=== PATIENT | male | born 1950 | race Caucasian/White ===

== ENCOUNTER → 2017-10-20 15:23 | Outpatient (CLI) | payer MEDICARE, OTHER, SELFPAY ==
[2017-10-20 16:10] LABS: PSA,Total- Diagnostic < 0.01 ng/mL (0.0-4.0)
== END ==
PROVIDERS: Visit Provider Urology
DX: C61 Malignant neoplasm of prostate (principal)
CPT/HCPCS: 36415; 84153

== ENCOUNTER → 2018-04-13 15:18 | Outpatient (CLI) | payer MEDICARE, OTHER, SELFPAY ==
[2018-04-13 16:46] LABS: PSA,Total- Diagnostic 0.01 ng/mL (0.0-4.0)
== END ==
PROVIDERS: Referring Provider Urology; Visit Provider Urology
DX: C61 Malignant neoplasm of prostate (principal)
CPT/HCPCS: 36415; 84153

== ENCOUNTER → 2018-10-27 15:21 | Outpatient (CLI) | payer MEDICARE, OTHER, SELFPAY ==
[2018-10-27 17:07] LABS: PSA,Total- Diagnostic < 0.01 ng/mL (0.0-4.0)
== END ==
PROVIDERS: Referring Provider Urology; Visit Provider Urology
DX: C61 Malignant neoplasm of prostate (principal)
CPT/HCPCS: 36415; 84153

== ENCOUNTER → 2018-11-06 15:25 | Outpatient (CLI) | payer MEDICARE, OTHER, SELFPAY | PROVIDERS: Referring Provider Psychiatry & Neurology Neurology; Visit Provider Psychiatry & Neurology Neurology | DX: E03.9 Hypothyroidism, unspecified (principal) | CPT/HCPCS: 36415 ==

== ENCOUNTER → 2019-05-04 15:26 | Outpatient (CLI) | payer MEDICARE, OTHER, SELFPAY ==
[2019-05-04 17:19] LABS: PSA,Total- Diagnostic 0.02 ng/mL (0.0-4.0)
== END ==
PROVIDERS: Referring Provider Urology; Visit Provider Urology
DX: C61 Malignant neoplasm of prostate (principal)
CPT/HCPCS: 36415; 84153

== ENCOUNTER → 2019-11-02 15:05 | Outpatient (CLI) | payer MEDICARE, OTHER, SELFPAY ==
[2019-11-02 16:59] LABS: PSA,Total- Diagnostic 0.02 ng/mL (0.0-4.0)
== END ==
PROVIDERS: Visit Provider Urology
DX: C61 Malignant neoplasm of prostate (principal)
CPT/HCPCS: 36415; 84153

== ENCOUNTER → 2019-11-05 12:38 | Outpatient (CLI) | payer MEDICARE, OTHER, SELFPAY ==
[2019-11-05 15:06] LABS: Erythrocyte Sedimentation Rate 10 mm/hr (0-20)
[2019-11-05 15:31] LABS: Hemoglobin A1c 5.3 % (3.8-5.6)
[2019-11-05 15:47] LABS: Rheumatoid Factor < 10.0 IU/mL (<15)
[2019-11-05 16:01] LABS: Vitamin B12 322 pg/mL (211-911)
[2019-11-05 23:22] LABS: Thyroid Stim Hormone (TSH) 4.59 uIU/mL (0.358-3.74)
[2019-11-08 16:07] LABS: RNP Ab 0.2 AI (0.0-0.9); Smith Ab <0.2 AI (0.0-0.9)
[2019-11-08 16:31] LABS: ANTINUCLEAR ANTIBODIES DIRECT Negative (Negative)
[2019-11-09 20:07] LABS: HCV Quant. RNA PCR HCV Not Detected IU/mL (.); PROEL- A/G Ratio 1.1 (0.7-1.7); PROEL- Albumin 3.4 g/dL (2.9-4.4); PROEL- Alpha-1 Globulin 0.2 g/dL (0.0-0.4); PROEL- Alpha-2 Globulin 0.6 g/dL (0.4-1.0); PROEL- Beta Globulin 0.9 g/dL (0.7-1.3); PROEL- Gamma Globulin 1.2 g/dL (0.4-1.8); PROEL- TOTAL PROTEIN 6.4 g/dL (6.0-8.5)
== END ==
PROVIDERS: Referring Provider Psychiatry & Neurology Neurology; Visit Provider Psychiatry & Neurology Neurology
DX: R20.1 Hypoesthesia of skin (principal); R53.83 Other fatigue; R73.9 Hyperglycemia, unspecified
CPT/HCPCS: 36415; 82607; 82746; 83036; 84165; 84443; 85652; 86038; 86235; 86431; 87522

== ENCOUNTER → 2020-06-29 14:01 | Outpatient (CLI) | payer MEDICARE, OTHER, SELFPAY ==
[2020-06-29 15:36] LABS: PSA,Total- Diagnostic 0.06 ng/mL (0.0-4.0)
== END ==
PROVIDERS: Referring Provider Urology; Visit Provider Urology
DX: C61 Malignant neoplasm of prostate (principal)
CPT/HCPCS: 36415; 84153

== ENCOUNTER → 2021-01-05 15:21 | Outpatient (CLI) | payer MEDICARE, OTHER, SELFPAY ==
--- NOTE | 2021-01-05 15:23 | RAD_ITS ---
STUDY: X-RAY CHEST REASON FOR EXAM: Male, 70 years old. DYSPNEA TECHNIQUE: PA and lateral views of the chest. COMPARISON: None. FINDINGS: There are interstitial fibrotic changes of the lungs. Lungs are underexpanded. No airspace consolidation. There is no demonstrated pleural abnormality. Normal size heart. Normal mediastinum and stevie. Normal visualized pulmonary arteries. There is atherosclerotic tortuosity of the aortic arch and descending thoracic aorta. There are diffuse degenerative changes of the visualized thoracic spine. Normal visualized ribs, clavicles, and shoulders. There is no demonstrated abnormality of the visualized soft tissue structures of the upper abdomen. RAD/Chest PA and Lateral IMPRESSION: 1. No acute cardiopulmonary process. 2. Pulmonary fibrosis. Electronically Signed: Eduardo Nino MD ([place]) at 16:05 EDT , Service support ,
== END ==
PROVIDERS: Referring Provider Internal Medicine Pulmonary Disease; Visit Provider Internal Medicine Pulmonary Disease
DX: R06.00 Dyspnea, unspecified (principal)
CPT/HCPCS: 71046

== ENCOUNTER → 2021-02-13 12:33 | Outpatient (CLI) | payer MEDICARE, OTHER, SELFPAY ==
[2021-02-13 13:56] LABS: Erythrocyte Sedimentation Rate 11 mm/hr (0-20)
[2021-02-13 14:31] LABS: Rheumatoid Factor < 10.0 IU/mL (<15)
[2021-02-15 14:10] LABS: Anti-Scleroderma-70 AB <0.2 AI (0.0-0.9)
[2021-02-15 17:55] LABS: ANTINUCLEAR ANTIBODIES DIRECT Negative (Negative); Anti-dsDNA Ab <1 IU/mL (0-9)
[2021-02-16 07:45] LABS: CCP IgG Antibodies 6 units (0-19)
== END ==
PROVIDERS: Referring Provider Internal Medicine Pulmonary Disease; Visit Provider Internal Medicine Pulmonary Disease
DX: R05 Cough (principal); Z77.090 Contact with and (suspected) exposure to asbestos
CPT/HCPCS: 36415; 85652; 86038; 86140; 86200; 86225; 86235; 86431

== ENCOUNTER → 2021-02-19 13:41 | Outpatient (CLI) | payer MEDICARE, OTHER, SELFPAY ==
--- NOTE | 2021-02-19 13:44 | CT_ITS ---
STUDY: CT CHEST WITHOUT CONTRAST REASON FOR EXAM: Male, 70 years old. CONTACT WITH SUSPECTED asbestos exposure. RADIATION DOSAGE (If Supplied By Facility): CTDIvol = ( 15.42 ) mGy, DLP = ( 522.15 ) mGycm TECHNIQUE: Transaxial imaging was performed without the administration of intravenous contrast material. Multiplanar coronal and sagittal images were reformatted. Individualized dose optimization techniques were used for this CT. COMPARISON: Comparison is made with prior study dated 12/24/2016. FINDINGS: Increased interstitial markings in both lungs more prominent in the lower lobes in a preferential peripheral distribution with a mild degree of subpleural cystic changes suggestive of a honeycombing. Calcified bilateral pleural plaques more prominent on the right side. There are calcifications of the coronary arteries. There are multiple small lymph nodes within the mediastinum, which are normal in size and morphology most compatible with reactive lymph hyperplasia. Normal hilar regions. Normal unenhanced pulmonary arteries. Normal aorta arch and descending thoracic aorta. There are multi-level degenerative changes of the thoracic spine. There is no demonstrated abnormality of the visualized upper abdomen. CT/Chest without Contrast IMPRESSION: Calcified pleural plaques. Findings in comparison with interstitial fibrosis and subpleural bleb formation. Electronically Signed: Mahamed Pablo MD at 15:17 EDT , Service support ,
== END ==
PROVIDERS: Referring Provider Internal Medicine Pulmonary Disease; Visit Provider Internal Medicine Pulmonary Disease
DX: Z77.090 Contact with and (suspected) exposure to asbestos (principal); R05 Cough
CPT/HCPCS: 71250

== ENCOUNTER → 2021-03-02 14:03 | Outpatient (CLI) | payer MEDICARE, OTHER, SELFPAY ==
[2021-03-02 15:33] LABS: AST(SGOT) 16 U/L (15-37); Alanine Aminotransfer ALT/SGPT 28 U/L (16-61); Albumin, Serum 3.1 g/dL (3.2-5.0); Alkaline Phosphatase 83 U/L (45-117); Bilirubin, Direct 0.24 mg/dL (0.00-0.30); Globulin 3.8 g/dL (2.2-4.2); Protein, Total 6.9 g/dL (6.4-8.2)
== END ==
PROVIDERS: Referring Provider Internal Medicine Pulmonary Disease; Visit Provider Internal Medicine Pulmonary Disease
DX: J84.10 Pulmonary fibrosis, unspecified (principal); Z79.899 Other long term (current) drug therapy
CPT/HCPCS: 36415; 80076

== ENCOUNTER 2021-05-31 14:32 | Outpatient (RCR) | payer MEDICARE, OTHER, SELFPAY ==
[2021-05-31 15:37] LABS: AST(SGOT) 21 U/L (15-37); Alanine Aminotransfer ALT/SGPT 39 U/L (16-61); Albumin, Serum 3.4 g/dL (3.2-5.0); Alkaline Phosphatase 98 U/L (45-117); Bilirubin, Direct 0.16 mg/dL (0.00-0.30); Globulin 3.8 g/dL (2.2-4.2); Protein, Total 7.2 g/dL (6.4-8.2)
== END 2021-06-09 18:00 | disposition home or self-care (01) ==
LOC: LAB 14:32
PROVIDERS: Visit Provider Internal Medicine Pulmonary Disease
DX: J84.10 Pulmonary fibrosis, unspecified (principal); Z79.899 Other long term (current) drug therapy
CPT/HCPCS: 36415; 80076

== ENCOUNTER 2021-07-04 10:34 | Outpatient (CLI) | payer MEDICARE, OTHER, SELFPAY ==
[2021-07-04 11:23] LABS: PSA,Total- Diagnostic 0.08 ng/mL (0.0-4.0)
== END 2021-07-04 23:59 | disposition short-term general hospital (02) ==
LOC: LAB 10:36
PROVIDERS: Visit Provider Urology
DX: C61 Malignant neoplasm of prostate (principal)
CPT/HCPCS: 36415; 84153

== ENCOUNTER 2021-08-16 08:02 | Outpatient (RCR) | payer MEDICARE, OTHER, SELFPAY ==
[2021-08-16 09:28] LABS: AST(SGOT) 15 U/L (15-37); Alanine Aminotransfer ALT/SGPT 31 U/L (16-61); Albumin, Serum 3.5 g/dL (3.2-5.0); Alkaline Phosphatase 97 U/L (45-117); Bilirubin, Direct 0.18 mg/dL (0.00-0.30); Globulin 3.9 g/dL (2.2-4.2); Protein, Total 7.4 g/dL (6.4-8.2)
== END 2021-09-06 18:00 | disposition home or self-care (01) ==
LOC: LAB 08:02
PROVIDERS: Referring Provider Internal Medicine Pulmonary Disease; Visit Provider Internal Medicine Pulmonary Disease
DX: Z79.899 Other long term (current) drug therapy (principal); J84.10 Pulmonary fibrosis, unspecified
CPT/HCPCS: 36415; 80076

== ENCOUNTER 2021-11-30 10:18 | Outpatient (RCR) | payer MEDICARE, OTHER, SELFPAY ==
[2021-11-30 11:39] LABS: AST(SGOT) 14 U/L (15-37); Alanine Aminotransfer ALT/SGPT 24 U/L (16-61); Albumin, Serum 3.4 g/dL (3.2-5.0); Alkaline Phosphatase 89 U/L (45-117); Bilirubin, Direct 0.18 mg/dL (0.00-0.30); Globulin 3.5 g/dL (2.2-4.2); Protein, Total 6.9 g/dL (6.4-8.2)
== END 2021-11-30 23:59 | disposition home or self-care (01) ==
LOC: LAB 10:18
PROVIDERS: Referring Provider Internal Medicine Pulmonary Disease; Visit Provider Internal Medicine Pulmonary Disease
DX: J84.10 Pulmonary fibrosis, unspecified (principal); Z79.899 Other long term (current) drug therapy
CPT/HCPCS: 36415; 80076

== ENCOUNTER 2022-03-04 13:12 | Outpatient (RCR) | payer MEDICARE, OTHER, SELFPAY ==
[2022-03-04 14:08] LABS: AST(SGOT) 13 U/L (15-37); Alanine Aminotransfer ALT/SGPT 27 U/L (16-61); Albumin, Serum 3.4 g/dL (3.2-5.0); Alkaline Phosphatase 83 U/L (45-117); Bilirubin, Direct 0.14 mg/dL (0.00-0.30); Globulin 3.7 g/dL (2.2-4.2); Protein, Total 7.1 g/dL (6.4-8.2)
== END 2022-03-04 18:00 | disposition home or self-care (01) ==
LOC: LAB 13:12
PROVIDERS: Referring Provider Internal Medicine Pulmonary Disease; Visit Provider Internal Medicine Pulmonary Disease
DX: J84.10 Pulmonary fibrosis, unspecified (principal); Z79.899 Other long term (current) drug therapy
CPT/HCPCS: 36415; 80076

== ENCOUNTER → 2022-03-04 | Outpatient (CLI) | payer MEDICARE, OTHER, SELFPAY ==
--- NOTE | 2022-03-04 12:51 | CT_ITS ---
EXAM: CT CHEST WITHOUT INTRAVENOUS CONTRAST CLINICAL INDICATION: PULM FIBROSIS PULM FIBROSIS TECHNIQUE: Helically acquired images were obtained of the chest without intravenous contrast. This CT exam was performed using one or more of the following dose reduction techniques: automated exposure control, adjustment of the mA and/or kV according to patient size, and/or use of iterative reconstruction technique. This report was created using [employer] report generation technology. RADIATION DOSE: CTDIvol = 15.43 mGy, DLP = 493.62 mGy-cm COMPARISON: CT scan chest 02/19/2021. FINDINGS: LUNGS AND PLEURAL SPACES: There are fibrotic changes in the lungs which are greatest in the lung peripheries. There are multiple small paraseptal emphysematous bullae bilaterally. There is some honeycombing bilaterally, consistent with usual interstitial pneumonitis. There are calcified pleural plaques bilaterally including plaques overlie the dome of the right hemidiaphragm, suspicious for asbestosis. There is mild bronchiectasis bilaterally. No mass. HEART: There are coronary artery calcifications. Heart size is normal. No pericardial effusion. MEDIASTINUM: Unremarkable. No mediastinal or hilar adenopathy. Esophagus is unremarkable. No hiatal hernia. THYROID: Unremarkable. No thyroid lesions. BONES/JOINTS: There are multilevel degenerative changes in the visualized spine. No suspicious lytic or blastic abnormality. VASCULATURE: Unremarkable. Thoracic aorta is non-dilated. KIDNEYS AND URETERS: There is a simple appearing cyst in the visualized upper pole left kidney. No follow-up imaging is necessary for simple renal cysts or cysts that are too small to characterize. CT/Chest without Contrast IMPRESSION: 1. Fibrotic and emphysematous changes in the lungs. Mild bronchiectasis. 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 2. Calcified pleural plaques, suggesting asbestosis. 3. Atherosclerosis. 4. No evidence for acute pathology. Electronically Signed: Abdon Mcqueen MD at 4:32 EDT Reading Location ID and State: [facility] / [place] , Service support ,
== END | disposition home or self-care (01) ==
LOC: CT 12:49
PROVIDERS: Referring Provider Internal Medicine Pulmonary Disease; Visit Provider Internal Medicine Pulmonary Disease
DX: J84.10 Pulmonary fibrosis, unspecified (principal); J84.112 Idiopathic pulmonary fibrosis; Z79.899 Other long term (current) drug therapy
CPT/HCPCS: 36415; 71250; 80076

== ENCOUNTER → 2022-04-11 | Outpatient (CLI) | payer MEDICARE, OTHER, SELFPAY ==
--- NOTE | 2022-04-11 13:44 | ECHOCS_ITS ---
Reason For Study: Hypoxemia Procedure This was a 2D Doppler, Color Flow transthoracic echocardiogram. Contrast injection was performed. The study was technically difficult. Exam performed in department. Left Ventricle Normal size and thickness. The left ventricular ejection fraction is 65 %. Diastolic function is indeterminate. Right Ventricle Normal right ventricle. Atria The left atrium is severely enlarged. The right atrium is mildly enlarged. Aneurysmal atrial septum. Bubble contrast study negative for right to left interatrial shunt. Mitral Valve Trivial mitral valve insufficiency. Tricuspid Valve Mild tricuspid valve insufficiency. Right ventricular systolic pressure estimated to be 42 mmHg. Mild pulmonary hypertension. Aortic Valve Normal aortic valve. Pulmonic Valve The pulmonic valve is not well visualized. Great Vessels Mildly dilated aortic root. Pericardium/Pleural No pericardial effusion. Medication 20 gauge I.V. with prn adaptor inserted into right arm. Diluted definity 2.5ml given slow IV push to enhance endocardial definition. Performed a rapid injection of agitated mix of 9 cc saline and 1cc air to assess for atrial septal defect. MMode/2D Measurements & Calculations LVIDd: 4.8 cm IVSd: 0.94 cm Ao root diam: 3.8 cm LVIDs: 3.0 cm LVPWd: 0.75 cm LA dimension: 4.3 cm FS: 37.7 % LAV(MOD-bp): 68.6 ml LA A4 area: 23.6 cm2 RA A4 area: 15.6 cm2 LAV(MOD-bp) Indexed: 35.0 ml/m2 LAV(MOD-sp2): 68.3 ml LAV(MOD-sp4): 62.3 ml Time Measurements MV dec time: 0.18 sec Doppler Measurements & Calculations MV E max eliel: 63.8 cm/sec Lat Peak E' Eliel: 12.8 cm/sec Med Peak E' Eliel: 8.5 cm/sec MV A max eliel: 80.6 cm/sec E/E' lat: 5.0 E/E' med: 7.5 MV E/A: 0.79 MV V2 max: 81.6 cm/sec MV P1/2t max eliel: 81.6 cm/sec Ao V2 max: 117.1 cm/sec MV max P.7 mmHg MV P1/2t: 64.1 msec Ao max P.5 mmHg MV V2 mean: 51.4 cm/sec MV dec slope: 372.9 cm/sec2 MV mean P.2 mmHg MV V2 VTI: 21.0 cm MVA(P1/2t): 3.4 cm2 LV V1 max: 115.3 cm/sec PA V2 max: 170.8 cm/sec TR max eliel: 286.2 cm/sec LV V1 max P.3 mmHg PA V2 mean: 120.8 cm/sec TR max P.8 mmHg ECHO/Echo Complete W/ Contrast Interpretation Summary The left ventricular ejection fraction is 65 %. Diastolic function is indeterminate. The left atrium is severely enlarged. Aneurysmal atrial septum. Bubble contrast study negative for right to left inte ratrial shunt. Mild tricuspid valve insufficiency. Right ventricular systolic pressure estimated to be 42 mmHg. Mild pulmonary hypertension. Mildly dilated aortic root. Ordering Physician: Nicholas Mondragon V Referring Physician: Nicholas Mondragon V Performed By: Mu Gerard, ELENA
== END | disposition home or self-care (01) ==
LOC: CVS 13:42
PROVIDERS: Referring Provider Internal Medicine Pulmonary Disease; Visit Provider Internal Medicine Pulmonary Disease
DX: R06.00 Dyspnea, unspecified (principal)
CPT/HCPCS: 93306; Q9957; A4216; C8929

== ENCOUNTER 2022-05-29 09:58 | Outpatient (RCR) | payer MEDICARE, OTHER, SELFPAY ==
[2022-05-29 11:35] LABS: AST(SGOT) 12 U/L (15-37); Alanine Aminotransfer ALT/SGPT 38 U/L (16-61); Alkaline Phosphatase 95 U/L (45-117); Bilirubin, Direct 0.15 mg/dL (0.00-0.30); Globulin 3.5 g/dL (2.2-4.2); Protein, Total 6.5 g/dL (6.4-8.2)
== END 2022-05-29 18:00 | disposition home or self-care (01) ==
LOC: LAB 09:58
PROVIDERS: Referring Provider Internal Medicine Pulmonary Disease; Visit Provider Internal Medicine Pulmonary Disease
DX: J84.10 Pulmonary fibrosis, unspecified (principal); Z79.899 Other long term (current) drug therapy
CPT/HCPCS: 36415; 80076

== ENCOUNTER → 2022-06-14 | Outpatient (CLI) | payer MEDICARE, OTHER, SELFPAY ==
[2022-06-14 14:51] LABS: BNP,B-Type NATRIURETIC PEPTIDE 13.9 pg/mL (0-100)
== END | disposition home or self-care (01) ==
LOC: LAB 13:38
PROVIDERS: Referring Provider Internal Medicine Pulmonary Disease; Visit Provider Internal Medicine Pulmonary Disease
DX: R06.00 Dyspnea, unspecified (principal)
CPT/HCPCS: 36415; 83880

== ENCOUNTER 2022-09-03 12:46 | Outpatient (RCR) | payer MEDICARE, OTHER, SELFPAY ==
[2022-09-03 14:27] LABS: AST(SGOT) 18 U/L (15-37); Alanine Aminotransfer ALT/SGPT 23 U/L (16-61); Albumin, Serum 3.2 g/dL (3.2-5.0); Alkaline Phosphatase 84 U/L (45-117); Bilirubin, Direct 0.14 mg/dL (0.00-0.30); Globulin 3.5 g/dL (2.2-4.2); Protein, Total 6.7 g/dL (6.4-8.2)
== END 2022-09-06 23:00 | disposition home or self-care (01) ==
LOC: LAB 12:46
PROVIDERS: Referring Provider Internal Medicine Pulmonary Disease; Visit Provider Internal Medicine Pulmonary Disease
DX: J84.10 Pulmonary fibrosis, unspecified (principal); Z79.899 Other long term (current) drug therapy
CPT/HCPCS: 36415; 80076

== ENCOUNTER 2022-11-20 09:10 | Outpatient (RCR) | payer MEDICARE, OTHER, SELFPAY ==
[2022-11-20 12:01] LABS: AST(SGOT) 17 U/L (15-37); Alanine Aminotransfer ALT/SGPT 27 U/L (16-61); Albumin, Serum 3.4 g/dL (3.2-5.0); Alkaline Phosphatase 93 U/L (45-117); Globulin 3.9 g/dL (2.2-4.2); Protein, Total 7.3 g/dL (6.4-8.2)
== END 2022-11-20 18:00 | disposition home or self-care (01) ==
LOC: LAB 09:10
PROVIDERS: Referring Provider Internal Medicine Pulmonary Disease; Visit Provider Internal Medicine Pulmonary Disease
DX: Z79.899 Other long term (current) drug therapy
CPT/HCPCS: 36415; 80076

== ENCOUNTER 2023-03-03 08:56 | Outpatient (RCR) | payer MEDICARE, OTHER, SELFPAY ==
[2023-03-03 09:49] LABS: AST(SGOT) 14 U/L (15-37); Alanine Aminotransfer ALT/SGPT 28 U/L (16-61); Albumin, Serum 3.1 g/dL (3.2-5.0); Alkaline Phosphatase 90 U/L (45-117); Bilirubin, Direct 0.14 mg/dL (0.00-0.30); Globulin 3.6 g/dL (2.2-4.2); Protein, Total 6.7 g/dL (6.4-8.2)
== END 2023-03-03 18:00 | disposition home or self-care (01) ==
LOC: LAB 08:56
PROVIDERS: Referring Provider Internal Medicine Pulmonary Disease; Visit Provider Internal Medicine Pulmonary Disease
DX: Z79.899 Other long term (current) drug therapy; R06.02 Shortness of breath; I27.20 Pulmonary hypertension, unspecified
CPT/HCPCS: 36415; 80076

== ENCOUNTER → 2023-05-22 | Outpatient (CLI) | payer MEDICARE, OTHER, SELFPAY ==
[2023-05-22 13:22] LABS: AST(SGOT) 20 U/L (15-37); Alanine Aminotransfer ALT/SGPT 35 U/L (16-61); Albumin, Serum 3.2 g/dL (3.2-5.0); Alkaline Phosphatase 95 U/L (45-117); Bilirubin, Direct 0.13 mg/dL (0.00-0.30); Globulin 3.9 g/dL (2.2-4.2); Protein, Total 7.1 g/dL (6.4-8.2)
== END | disposition home or self-care (01) ==
PROVIDERS: Referring Provider Internal Medicine Pulmonary Disease; Visit Provider Internal Medicine Pulmonary Disease
DX: I27.20 Pulmonary hypertension, unspecified (principal); R06.02 Shortness of breath
CPT/HCPCS: 36415; 80076

== ENCOUNTER 2023-09-01 11:02 | Outpatient (RCR) | payer MEDICARE, OTHER, SELFPAY ==
[2023-09-01 13:17] LABS: AST(SGOT) 16 U/L (15-37); Alanine Aminotransfer ALT/SGPT 30 U/L (16-61); Albumin, Serum 3.5 g/dL (3.2-5.0); Alkaline Phosphatase 81 U/L (45-117); Bilirubin, Direct 0.19 mg/dL (0.00-0.30); Globulin 3.8 g/dL (2.2-4.2); Protein, Total 7.3 g/dL (6.4-8.2)
== END 2023-09-06 18:00 | disposition home or self-care (01) ==
LOC: LAB 11:02
PROVIDERS: Referring Provider Internal Medicine Pulmonary Disease; Visit Provider Internal Medicine Pulmonary Disease
DX: J84.10 Pulmonary fibrosis, unspecified (principal); Z79.899 Other long term (current) drug therapy
CPT/HCPCS: 36415; 80076

== ENCOUNTER → 2023-11-07 | Outpatient (CLI) | payer MEDICARE, OTHER, SELFPAY ==
--- NOTE | 2023-11-07 07:41 | CT_ITS ---
EXAM: CT RIGHT UPPER EXTREMITY WITHOUT INTRAVENOUS CONTRAST CLINICAL INDICATION: PRIMARY OSTEOARTHRITIS TECHNIQUE: Helically acquired images were obtained of the right upper extremity without intravenous contrast. 2-D reformats were performed by the technologist. This CT exam was performed using one or more of the following dose reduction techniques: automated exposure control, adjustment of the mA and/or kV according to patient size, and/or use of iterative reconstruction technique. RADIATION DOSE: CTDIvol = 26.58 mGy, DLP = 723.93 mGy-cm COMPARISON: No prior examinations are available for comparison. FINDINGS: BONES/JOINTS: Narrowing of the glenohumeral joint. Marginal degenerative spurs of the medial aspect of the humeral head. Cephalad migration of the humeral head with narrowing of the space between the acromion process and the humeral head which can impinge on the supraspinatus tendon. The acromioclavicular joint is essentially unremarkable. No acute fracture. No subluxation. Normal alignment. SOFT TISSUES: Unremarkable. No soft tissue swelling or gas. No radiopaque foreign body. LUNGS: The visualized portions of the lungs demonstrate subpleural thickening and mild cystic changes which could reflect chronic changes and fibrosis. Pleural calcifications in the medial aspect of the right lower chest and subdiaphragmatic region. CT/Extremity Upper without Contra IMPRESSION: Degenerative arthrosis of the right shoulder as described above. Electronically Signed: Cody Cabezas MD at 13:30 EDT ,
== END | disposition home or self-care (01) ==
LOC: CT 07:40
PROVIDERS: Referring Provider Student in an Organized Health Care Education/Training Program; Visit Provider Student in an Organized Health Care Education/Training Program
DX: M19.011 Primary osteoarthritis, right shoulder (principal)
CPT/HCPCS: 73200

== ENCOUNTER 2023-11-17 11:14 | Outpatient (RCR) | payer MEDICARE, OTHER, SELFPAY ==
[2023-11-17 13:10] LABS: AST(SGOT) 23 U/L (15-37); Alanine Aminotransfer ALT/SGPT 40 U/L (16-61); Albumin, Serum 3.3 g/dL (3.2-5.0); Alkaline Phosphatase 102 U/L (45-117); Bilirubin, Direct 0.28 mg/dL (0.00-0.30); Globulin 3.6 g/dL (2.2-4.2); Protein, Total 6.9 g/dL (6.4-8.2)
== END 2023-11-17 18:00 | disposition home or self-care (01) ==
LOC: LAB 11:14
PROVIDERS: Referring Provider Internal Medicine Pulmonary Disease; Visit Provider Internal Medicine Pulmonary Disease
DX: I27.20 Pulmonary hypertension, unspecified; R06.02 Shortness of breath
CPT/HCPCS: 36415; 80076

== ENCOUNTER 2023-12-04 12:08 | Observation (INO) | payer MEDICARE, OTHER, SELFPAY ==
[2023-11-17 12:31] LABS: Absolute Lymphocyte Count 1.01 X10^3/uL (0.83-4.51); Absolute Neutrophil Count 3.9 X10^3/uL (2.0-7.7); Basophil# 0.03 X10^3/uL; Basophil% 0.5 % (0-1); Eosinophil# 0.21 X10^3/uL; Eosinophils% 3.5 % (0-5); Hematocrit 38.9 % (40-54); Hemoglobin 12.9 g/dL (13.0-16.5); Lymphocyte # 1.01 X10^3/ul (0.83-4.51); Lymphocyte % 16.9 % (19-41); Mean Corp Hgb Conc 33.2 g/dL (32-36); Mean Corpuscular Hgb 32.5 pg (27.0-32.0); Mean Platelet Vol. 9.7 fl (6.2-12.0); Monocyte# 0.68 X10^3/uL; Monocyte% 11.4 % (0-10); NRBC Flagged by Analyzer 0 % (0-5); Neutrophil # 3.93 X10^3/uL (2.7-7.7); Neutrophil % 65.9 % (47-70); Platelet Count 157 K/mm3 (150-450); RBC Distribution Width CV 13.3 % (11.6-14.6); RBC Distribution Width SD 48.3 fl (35.1-43.9); Red Blood Count 3.97 M/mm3 (4.6-6.2)
[2023-11-17 12:51] LABS: Hemoglobin A1c 5.2 % (3.8-5.6)
[2023-11-17 12:58] LABS: Albumin, Serum 3.4 g/dL (3.2-5.0); Anion Gap 4 (5-15); BUN 15 mg/dL (7-18); BUN/Creat Ratio 16.7 RATIO (10-20); Calcium,Total 8.7 mg/dL (8.5-10.1); Chloride 105 mmol/L (98-107); EST Glomerular Filtration Rate 88 mL/min (>60); Est Glom Filt Rate - Afr Amer 106 mL/min (>60); Glucose 97 mg/dL (74-106); Potassium 3.9 mmol/L (3.5-5.1); Sodium Level 137 mmol/L (136-145)
[2023-12-04] VITALS (18 sets, daily range): BP systolic 87–133; BP diastolic 55–112; PULSE 60–82; RESP 12–18; TEMP 36–36.8; O2SAT 93–100; BMI 29.9; BMI 31.1
--- NOTE | 2023-12-04 08:12 | PRE.ANES_ITS ---
ASA Classification* ASA Classification ASA Classification: 3 Assessment & Plan Anesthesia* Anesthesia Assessment Anesthesia Assessment: Discussed sedation and/or anesthesia options, risks, benefits, and alternatives with patient/parents/legal guardian/POA. Questions invited. The patient/parents/legal guardian/POA seems to understand and agrees to proceed with anesthesia plan. Reviewed the physical assessment, medical history, allergy history and patient home medications list prior to surgery/procedure/anesthetic and documented any changes. Performed airway and anesthesia risk assessments. Procedural Plan Procedural Plan:: Proceed w/ Anesthesia plan Anesthesia Type Anesthesia Type: General (see written pre anesthesia record for full assessment) Anesthesia Focused Assessment* Airway Assessment Mouth opens: >3 cm Mallampati Score: II Focused Labs Anesthesia Preop lab: CBC WBC 6.0 K/mm3 (4.4-11.0) 11/17/23 11:23 RBC 3.97 M/mm3 (4.6-6.2) L 11/17/23 11:23 Hgb 12.9 g/dL (13.0-16.5) L 11/17/23 11:23 Hct 38.9 % (40-54) L 11/17/23 11:23 Plt Count 157 K/mm3 (150-450) 11/17/23 11:23 CHEMISTRY Potassium 3.9 mmol/L (3.5-5.1) 11/17/23 11:23 Sodium 137 mmol/L (136-145) 11/17/23 11:23 Magnesium 2.0 mg/dL (1.6-2.6) 11/17/23 11:23 BUN 15 mg/dL (7-18) 11/17/23 11:23 Creatinine 0.90 mg/dL (0.70-1.30) 11/17/23 11:23 Glucose 97 mg/dL (74-106) 11/17/23 11:23 TSH 4.59 uIU/mL (0.358-3.74) H 11/05/19 12:49 COAG Pre-Assessment Diagnosis/Proposed Procedure Planned Operative Procedure(s): RIGHT REVERSE TOTAL SHOULDER ARTHROPLASTY Anesthesia History 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 When Was Last Pacemaker Check QUESTION #4 FULL TEXT: You/Your Family Experience fever (hyperthermia) with Anesthesia Last Oral Intake Last Oral intake: Last Oral Intake NPO since Meds taken in AM with sips of water? Meds patient instructed to take am of surgery PONV PONV - shipping processor: PONV - shipping processor Female No 11/07/23 10:17 HX of Motion Sickness No 11/07/23 10:17 HX of N/V After Surgery No 11/07/23 10:17 Non-Smoker Yes 11/07/23 10:17 Duration of Surgery greater Yes 11/07/23 10:17 than 60 minutes Number of Risk Factors 2 11/07/23 10:17 PONV Score Moderate Risk 11/07/23 10:17 Respiratory Assessment Respiratory Assessment - shipping processor: Respiratory Tract Infection Hx - shipping processor Hx Respiratory Tract Infection No 11/07/23 10:17 STOP Sleep Apnea STOP Sleep Apnea - shipping processor: STOP Sleep Apnea - shipping processor Hx Hypertension No 11/07/23 10:17 Hx Sleep Apnea Yes 11/07/23 10:17 CPAP No 11/07/23 10:17 BIPAP Yes 11/07/23 10:17 Do you snore loudly (louder than talking or can be heard Do you often feel tired/ fatigued/ sleepy during daytime? Has anyone observed you stop breathing during sleep? STOP Results Positive 11/07/23 10:17 QUESTION #5 FULL TEXT : Do you snore loudly (louder than talking or can be heard through closed doors)? Tobacco Use History Tobacco Use History - shipping processor: Tobacco Use History - shipping processor Tobacco Use Smoking Status Never smoker 11/07/23 10:17 Hx Tobacco Use No 11/07/23 10:17 Years Smoking Packs Smoked per Day Smoking Cessation Date was within the last 15 years Hx Smoking Cessation Date Hx Smoking Cessation Counseling Hematologic Medial History Hematologic Hx - shipping processor: Hematologic Medical Hx - documentation nurse Hx of Blood Transfusion No 11/07/23 10:17 Hx of Transfusion in last 3 No 11/07/23 10:17 Months Date of Last Transfusion (if within last 3 months) Ever experience any problems No 11/07/23 10:17 with transfusion(s)? Specify any problems Hx of Preganancy in last 3 N/A 11/07/23 10:17 Months Nurse Filling Out Transfusion DSCHRIBER 11/07/23 10:17 & Questions: Date: 11/07/23 11/07/23 10:17 Time: 10:19 11/07/23 10:17 Patient unable to answer at this time (ie. confused, unrespo /Reproduction History /Reproductive History - shipping processor: /Reproductive Hx- shipping processor Hx Now No 11/07/23 10:17 Gestational Age (in weeks): EDC: Hx Hx Para Hx Section SAB No 11/07/23 10:17 Active Medications Active Medications: Current Medications Generic Name Dose Route Start Last Admin Trade Name Freq PRN Reason Stop Dose Admin Lactated Ringer's 1,000 mls @ 999 mls/hr 12/04/23 07:30 IV 12/04/23 08:30 .Q1H1M CRISTOBAL Cefazolin Sodium 2 gm/ Sodium 110 mls @ 150 mls/hr 12/04/23 07:30 Chloride IV 12/04/23 08:13 PREOP ONE Lactated Ringer's 1,000 mls @ 999 mls/hr 12/04/23 07:30 IV 12/04/23 08:30 .Q1H1M CRISTOBAL Lactated Ringer's 1,000 mls @ 15 mls/hr 12/04/23 08:00 IV .Q48H CRISTOBAL Insulin Human Lispro 1 - 6 unit 12/04/23 07:30 Insulin Lispro 100 Unit/Ml Insuln.Pen SC Q4H PRN PRN BG>/= 180, SEE PROTOCOL Protocol PFSH Medical History Wears hearing aid Wears dentures Arthritis Migraine headache Gastric reflux Pulmonary fibrosis Non-smoker BiPAP (biphasic positive airway pressure) dependence Shortness of breath on exertion History of edema Hypertension History of echocardiogram History of stress test Cardiology follow-up encounter History of CHF (congestive heart failure) Cancer Home Medications ?Medication ?Instructions ?Recorded ?Last Taken ?Type aspirin 81 mg tablet,delayed 81 mg PO DAILY 11/07/23 Unknown History release (Adult Aspirin Regimen) famotidine 20 mg tablet (Pepcid) 20 mg PO DAILY 11/07/23 12/04/23 06:04 History furosemide 40 mg tablet 40 mg PO DAILY 11/07/23 Unknown History metoprolol succinate 25 mg 25 mg PO DAILY 11/07/23 12/04/23 06:04 History tablet,extended release 24 hr modafinil 100 mg tablet 100 mg PO DAILY 11/07/23 Unknown History nortriptyline 50 mg capsule 50 mg PO QHS 11/07/23 Unknown History pirfenidone 267 mg capsule 801 mg PO TID 11/07/23 Unknown History (Esbriet) Allergy/AdvReac Type Severity Reaction Status Date / Time omeprazole Allergy Intermediate Itching Verified 11/07/23 10:42 ranitidine Allergy Intermediate Itching Verified 11/07/23 10:42 Surgical History History of cardiac catheterization Hx of colonoscopy Hx of tonsillectomy Hx of colectomy Hx of arthroscopy of shoulder Hx of right cataract extraction Hx of left cataract extraction History of carpal tunnel surgery of right wrist History of carpal tunnel surgery of left wrist Hx of prostate biopsy Hx of cystoscopy Hx of inguinal hernia surgery Hx of umbilical hernia repair Social History Smoking Status: Never smoker Review of Systems (Anesthesia) ROS Narrative System reviewed and no additional complaints, except as documented.
[2023-12-04] MEDS: Lactated Ringers 1,000 ML 999 ML IV ×2 (08:33→12:35)
[2023-12-04] MEDS: Magnesium 1 GM over 15 mins IV (08:34)
[2023-12-04] MEDS: Acetaminophen 500 MG Tablet 1000 MG PO ×3 (08:34→23:39)
[2023-12-04] MEDS: Gabapentin 600 MG Tablet PO (08:35)
[2023-12-04] MEDS: Celecoxib 200 MG Capsule 400 MG PO (08:35)
[2023-12-04 08:59] LABS: Bedside Glucose 149 mg/dL (74-106)
--- NOTE | 2023-12-04 10:15 | SHO_PTH ---
PATIENT: DION LOWRY LOC: [facility]3 U#:[id number] AGE/SX: 73/M ROOM: HI316 RE12/04/[address]: Dr. Corbin Guaman DO : 1950 BED: 1 DIS: 12/05/2023 SPEC #: [id number] RECD: 12/04/23 15:11 STATUS: EBONI ZUÑIGA #: [id number] ADÁN: 12/04/23 10:[address]: Corbin Guaman DEPT: SURGICAL PATHOLOGY RECD BY: Lainey Cerws ENTERED: 12/05/23 07:08 SP TYPE: HUMERUS OTHR DR: MD Dr. Vipul Marvin MD Dr. Katie Mae Brenner, DO Tissues: Humerus, NOS Procedures: Decalcification bone/plaque Surgery Specimen Level IV HEADER OPERATION: ERAS, total shoulder replacement, reverse PRE-OP DIAGNOSIS: Osteoarthritis right shoulder TISSUE SUBMITTED: Right humeral head MICROSCOPIC DIAGNOSIS Bone and tissue of right shoulder, total shoulder resection: Degenerative joint disease. AM: 12/10/2023 MICROSCOPIC DESCRIPTION Slides are reviewed. GROSS DESCRIPTION Received is one container labeled with the patient's name and designated bone and soft tissue. The specimen consists of a right humeral head measuring 5.5 x 6.0 x 2.5 cm. The articular surface shows areas of erosion, eburnation and osteophyte formation. No soft tissue is identified. [employer] sections are submitted in one cassette after decalcification. / SJ: 12/05/2023 TC:5 CPT: 31558, 53979
[2023-12-04] MEDS: Lactated Ringers 1,000 ML 15 ML IV (10:19)
[2023-12-04] MEDS: Cefazolin 2 GM in 0.9% Normal Saline (100mL Bag) 100 ML IV (10:24)
[2023-12-04] MEDS: TXA 1000mg in NS100 100ml (IVPB at Incision) 660 MG IV (10:44)
[2023-12-04] MEDS: dexAMETHasone 10 MG/ML Vial IV (10:45)
[2023-12-04] MEDS: JPS (Morphine 10mg/ml) OPERA.SITE (12:00)
--- NOTE | 2023-12-04 12:13 | PCM.OPRPT ---
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 Procedure: Right Reverse total shoulder arthroplasty Surgeon: Corbin Guaman DO Kettle Operator: Wanda Peters PA-C Anesthesia: General endotracheal Greensman: Olivia Cook CRNA Complications: None apparent Drains: None Estimated blood loss: 150 cc Urinary output: None IV fluids: 800 cc crystalloid Specimens: None Surgical implants: Tornier Aequalis PerFORM+ reversed baseplate 29 mm diameter full wedge augment, standard glenosphere cobalt chrome 42 mm diameter, Tornier perform inlay stem size #3, + 6 mm retentive size number 3 42 mm diameter polyethylene insert, short central post and peripheral screws x4. Surgical indications: This is a 73-year-old male with persistent right shoulder pain. He did have worsening symptoms over the last several months. X-rays revealed severe glenohumeral joint osteoarthritis with suspected rotator cuff deficiency. I recommended a reverse shoulder arthroplasty. We obtained a preoperative CT scan for planning. The risks, benefits, alternatives the procedure was reviewed with the patient and he agreed to proceed. Risks included but were not limited to bleeding, infection, instability, loss of life or limb, risk of anesthesia, neurovascular injury, persistent pain, stiffness, prolonged immobilization, need for additional surgery, loosening of orthopedic hardware. He expressed understanding and wished to proceed with surgery. Surgical details: Patient arrived to [facility] morning of the procedure and was greeted by the same day surgery staff. Prior to his procedure, I greeted the patient in the preoperative holding area I identified the patient by name, record number, and date of . Informed consent was confirmed. The operative extremity was marked. All questions were answered to patient satisfaction. At time of his procedure, patient was brought to the operative suite and positioned supine on a standard table with a beachchair attachment. General anesthesia was induced after all bony prominences were well-padded. Endotracheal tube was placed. After adequate anesthesia and securing the tube, we prepared the patient to be positioned in the beachchair position. A well-padded head inspector was applied. The nonoperative extremity was placed in a well arm owusu. He was then brought into the beachchair position after we confirmed an appropriate blood pressure. We then spun the bed 45 degrees. The operative extremity was then prepared. In the butterfly wing of the bed was removed and a well-padded torso strap was applied to secure the patient to the bed. The operative extremity was now free. We then prepped and draped the right upper extremity in normal, sterile orthopedic fashion. We then performed a timeout with all parties in attendance in agreement with the side, site, and operation be performed. 2 g Ancef was administered prior to incision by anesthesia staff, as well as 1 g TXA IV. No concerns were voiced and we elected to proceed. I first marked a standard deltopectoral incision just lateral to the coracoid process in line with the long axis of the humerus. Skin was sharply incised with 10 blade scalpel. I then dissected bluntly through the subcutaneous layers and found the fat stripe between the deltoid and pectoralis major. The cephalic vein was then identified and protected. It was retracted laterally with the deltoid. I then bluntly dissected underneath the deltoid with a Dotson elevator. Hillary retractor was placed. The upper 1 cm of the pectoralis major was released. I then identified the long head of the biceps tendon in the intertubercular groove. This was tenodesed in situ with #2 FiberWire. I then amputated the biceps proximal to the tenodesis site and followed the tendon to the supraglenoid tubercle where it was amputated. This identified the lesser and greater tuberosities. The supraspinatus was partially torn. I then performed a subscapularis peel while rotating the humerus externally. I tagged the subscapularis for possible repair later with a tagging suture. Humeral head was then dislocated anteriorly. Appropriate access to the humeral head was confirmed. I then subluxed the humeral head posteriorly with a Fukuda retractor placed around the posterior lip of the glenoid. Inferior capsule was tension. I was able to palpate the axillary nerve. Inferior capsule was then released to the 4 o'clock position of the glenoid face. 3 sided subscapularis release was performed with Bovie cautery. I then remove the Fukuda retractor and redislocated the shoulder anteriorly. I then made a anatomic neck cut of the cartilaginous surface of the humeral head. Sizing plate for a size # 3 stem was utilized to determine appropriate reaming size. A central pin was placed engaging the lateral cortex of the humerus. A size # 3 reamer was used to ream the humeral metaphysis and prepare for the inlay stem. A canal finding reamer was utilized prior to sequential broaching to a size # 3 short stem with excellent rotational and axial purchase in the humerus. I remove the broach handle left the size # [address] I then subluxed the humerus posterior to the glenoid. I then placed retractors around the posterior and anterior glenoid to expose the glenoid. Glenoid labrum was removed with Bovie cautery protecting the axillary nerve. We then used the custom guide from Bobby to position our centering pin, exiting approximately 25 mm from the joint surface along the anterior scapula. Guide was removed and pin was analyzed and compared to preoperative planning. It appeared to be in appropriate position. Our wedge reamer was then introduced and reamed to a appropriate flat surface. We then removed the reamer and used the cannulated drill for the short central post. Post and baseplate was assembled on the back table. We then inserted the baseplate and central post the assembled baseplate to an appropriate depth with good press-fit purchase. A [place] was used to confirm depth. Screws then were placed in the peripheral holes with good purchase. The baseplate had excellent purchase and the entire scapula would rotate with rotation of the baseplate. We then impacted the 42 mm glenosphere with a standard eccentricity and tightened the locking screw mechanism. We then removed retractors and turned our attention back to the humerus. I placed a standard +6 millimeters retentive polyethylene insert. I then reduced the shoulder. There was excellent range of motion and stability in all planes of motion. We selected this as our final size. We removed trials from the humerus after final dislocation. I copiously irrigated the canal. Broach was placed on hand and then impacted to an appropriate depth. Final + 6 mm retentive polyethylene insert was placed. Final reduction was then performed. The subscapularis was then identified with a tagging suture. Repair would have been likely under undue tension and likely failed. I elected to not perform a subscapularis repair. We then copiously irrigated the wound with sterile Betadine and normal saline solution. We reapproximated the interval with 0 Vicryl suture. Subcutaneous layers were reapproximated with 2 -0 Vicryl suture. Skin was finally running V-Loc 3-0 Monocryl suture and Dermabond. A sterile silver Mepilex dressing was applied. Patient was then placed in an ultra sling. Patient tolerated procedure well without complication. He was positioned back in the supine position extubated in the operative suite. He was transferred to the [facility] and subsequently to PACU in stable condition. Need for skilled assistant branch manager: Wanda Peters PA-C was critical to the outcome of the case. During the course of the procedure the physician assistant branch manager played a vital role. Her intimate knowledge of my steps in the procedure aided in safe and expedient completion of the procedure. The PA played a vital role in positioning particularly in obtaining the appropriate positioning. The PA was also vital in the retraction of soft tissues during the exposure and protecting vital structures. The PA was also vital and protecting soft tissues during times of bony cuts. She also played a vital role in closure with my direct supervision. The PA was also important during reduction and dislocation of the joint and trials intraoperatively. Intraoperative medications: 2 g Ancef IV, 1 g TXA IV Post Operative Plan: Weightbearing: Nonweightbearing right upper extremity, okay for pendulums. Range of motion of wrist elbow and hand as tolerated. Antibiotics: 2 g Ancef IV prior to incision, 24 hours IV antibiotics postoperatively DVT Prophylaxis: Aspirin enteric-coated 81 mg twice daily starting tomorrow Hawkins: None Dressing: Maintain silver dressing x 5 days. Okay to shower dressing on started on day 4 X-Rays: 2 weeks postop in the office Pain Medication: Oxycodone Rx upon discharge Follow-up: 2 weeks post-operatively with me in the office
--- NOTE | 2023-12-04 12:40 | PCM.POST.ANE ---
Anesthesia: Postop Eval I Current Vital Signs Temperature: 97.0 F Pulse Rate: 64 Blood Pressure: 131/83 Respiratory Rate: 16 Pulse Ox: 100 Oxygen Delivery Method: Simple Mask Oxygen Flow Rate (L/min): 6 Assessment Airway patent: Yes Spontaneous unlabored respirations: Yes Mental status: Awake and Calm nausea: No Vomiting: No Anesthesia Complication: No Fluid Hydration Crystalloid volume administer (ml): 700 Total IV fluid infused: 700 Progress Note Anesthesia document: Postop Eval 1 completed: Yes
--- NOTE | 2023-12-04 12:44 | RAD_ITS ---
STUDY: X-RAY - RIGHT SHOULDER REASON FOR EXAM: Male, 73 years old. Post op -- AP and Lateral X-Ray of operative shoulder in PACU TECHNIQUE: 2 view(s) of the shoulder. COMPARISON: None. FINDINGS: The patient is status post right reverse shoulder replacement. There is good alignment. Postoperative soft tissue changes. RAD/Shoulder min 2 Views IMPRESSION: Status post reverse shoulder replacement. There is good alignment. Postoperative soft tissue changes. Electronically Signed: Mahamed Pablo MD at 13:15 EDT ,
[2023-12-04] MEDS: Lactated Ringers 1,000 ML 125 ML IV ×2 (13:21→22:36)
--- NOTE | 2023-12-04 13:23 | POSTOPAN2_ITS ---
Anesthesia Postop Eval I Sum Postop Eval Completion status Anesthesia document: Postop Eval 1 completed: Yes Anesthesia Postop Eval I Summary Anesthesia Postop Eval I Summary: Anesthesia Postop Eval I: Assessment Summary Airway patent Yes 12/04/23 12:41 ASPHALT TILE FLOOR [email or web address] Spontaneous unlabored Yes 12/04/23 12:41 ASPHALT TILE FLOOR LAYERMARY respirations Mental status Awake,Calm 12/04/23 12:41 ASPHALT [email or web address] FLOOR [email or web address] nausea No 12/04/23 12:41 ASPHALT TILE FLOOR [email or web address] Vomiting No 12/04/23 12:41 ASPHALT TILE FLOOR LAYERMARY Anesthesia Postop Eval I: Fluid Summary Crystalloid volume administer 700 12/04/23 12:41 ASPHALT TILE FLOOR [email or web address] (ml) Colloids volume administered ( ml) Blood Product volume administered (ml) Total IV fluid infused 700 12/04/23 12:41 ASPHALT TILE FLOOR LAYERMARY Anesthesia Postop Eval I: Summary Notes Anesthesia Complication No 12/04/23 12:41 TC Anesthesia Complication Comment: Post-operative progress note Anesthesia: Postop Eval II Evaluation Mental status: Awake Pain Level: 0 nausea: No Vomiting: No
--- NOTE | 2023-12-04 13:23 | PCM.POSTANE2 ---
Anesthesia Postop Eval I Sum Postop Eval Completion status Anesthesia document: Postop Eval 1 completed: Yes Anesthesia Postop Eval I Summary Anesthesia Postop Eval I Summary: Anesthesia Postop Eval I: Assessment Summary Airway patent Yes 12/04/23 12:41 [email or web address] Spontaneous unlabored Yes 12/04/23 12:41 CRIB CLERKMARY respirations Mental status Awake,Calm 12/04/23 12:41 [email or web address] nausea No 12/04/23 12:41 [email or web address] [email or web address] Vomiting No 12/04/23 12:41 CRIB CLERKMARY Anesthesia Postop Eval I: Fluid Summary Crystalloid volume administer 700 12/04/23 12:41 [email or web address] (ml) Colloids volume administered ( ml) Blood Product volume administered (ml) Total IV fluid infused 700 12/04/23 12:41 CRIB CLERKMARY Anesthesia Postop Eval I: Summary Notes Anesthesia Complication No 12/04/23 12:41 TC Anesthesia Complication Comment: Post-operative progress note Anesthesia: Postop Eval II Evaluation Mental status: Awake Pain Level: 0 nausea: No Vomiting: No
[2023-12-04] MEDS: Cefazolin 1 GM/50 ML BAG IV (18:20)
--- NOTE | 2023-12-04 19:35 | CON.PCM.HO_ITS ---
Assessment & Plan Assessment/Plan (1) Hypotension: QUALIFIERS: Hypotension type: idiopathic hypotension Qualified Code(s): I95.0 - Idiopathic hypotension (2) Status post reverse arthroplasty of right shoulder: (3) IPF (idiopathic pulmonary fibrosis): (4) Central sleep apnea: PLAN: Plan DION LOWRY, is a 73 M with a significant history of central sleep apnea; tachycardia; heart failure with preserved ejection fraction; IPF; and headaches who is status post right reverse total shoulder arthroplasty and for whom internal medicine service has been consulted for medical management of chronic medical conditions including the above and also for postoperative management. Status post revised right shoulder arthroplasty Continue pain control. Managed by orthopedic surgery. Heart failure with preserved ejection fraction Stable Lasix continued. Stop IV fluids. Hypotension Hold metoprolol. Central sleep apnea Continue home modafinil and BiPAP/CPAP. DVT prophylaxis: Mechanical. Time spent in the patient's overall evaluation,decision-making process, review of diagnostic data, adjustment of management, discussion with other providers, nursing and ancillary staff involved in patient's care documentation, 70 minutes. Advance care planning: Discussed with patient and family advanced directives as well as CODE STATUS. Explained various CODE STATUS: FULL CODE, DNR CCA, DNR CCA with no intubation, and DNR CC- and what each meant. Patient elected to be a DNR CCA with no chest compressions or intubation. Order was placed. Time spent on discussion 16 minutes. HPI Consult Data Date of Consult: 12/04/23 HPI Narrative Reason for Consultation: Medical management HPI Narrative: DION LOWRY, is a 73 M with a significant history of central sleep apnea; tachycardia; heart failure with preserved ejection fraction; IPF; and headaches who is status post right reverse total shoulder arthroplasty and for whom internal medicine service has been consulted for medical management of chronic medical conditions including the above and also for postoperative management. Patient denies any symptoms postop. He was in right shoulder sling. [facility] Medical History Wears hearing aid Wears dentures Arthritis Migraine headache Gastric reflux Pulmonary fibrosis Non-smoker BiPAP (biphasic positive airway pressure) dependence Shortness of breath on exertion History of edema Hypertension History of echocardiogram History of stress test Cardiology follow-up encounter History of CHF (congestive heart failure) Cancer Home Medications ?Medication ?Instructions ?Recorded ?Last Taken ?Type aspirin 81 mg tablet,delayed 81 mg PO DAILY 11/07/23 11/29/23 History release (Adult Aspirin Regimen) famotidine 20 mg tablet (Pepcid) 20 mg PO DAILY 11/07/23 12/04/23 06:04 History furosemide 40 mg tablet 40 mg PO DAILY 11/07/23 Unknown History metoprolol succinate 25 mg 25 mg PO DAILY 11/07/23 12/04/23 06:04 History tablet,extended release 24 hr modafinil 100 mg tablet 100 mg PO DAILY 11/07/23 Unknown History nortriptyline 50 mg capsule 50 mg PO QHS 11/07/23 Unknown History pirfenidone 267 mg capsule 801 mg PO TID 11/07/23 Unknown History (Esbriet) Allergy/AdvReac Type Severity Reaction Status Date / Time omeprazole Allergy Intermediate Itching Verified 11/07/23 10:42 ranitidine Allergy Intermediate Itching Verified 11/07/23 10:42 Surgical History History of cardiac catheterization Hx of colonoscopy Hx of tonsillectomy Hx of colectomy Hx of arthroscopy of shoulder Hx of right cataract extraction Hx of left cataract extraction History of carpal tunnel surgery of right wrist History of carpal tunnel surgery of left wrist Hx of prostate biopsy Hx of cystoscopy Hx of inguinal hernia surgery Hx of umbilical hernia repair Social History Smoking Status: Never smoker ROS ROS Narrative Pertinent positives and pertinent negatives as noted in HPI. All other systems were reviewed and are negative Physical Exam Narrative Physical exam: General: Well-nourished, well-developed. Head: Normocephalic, atraumatic, no tenderness Eyes: Vision is grossly intact. EOMI ENT, no trauma, moist mucous membranes, no rhinorrhea Neck: Nontender, No thyromegaly. CVS: Regular rate and rhythm. S1-S2 present. No murmur, gallop or rub. Respiratory : Diffuse scattered rales. Abdomen: Soft, nontender, nondistended, normal bowel sounds, no masses : Deferred Back: Nontender, no CVA tenderness, no midline spinal tenderness, deformities, step-offs Extremities: Right shoulder in sling Skin: Normal color, no trauma, abrasions Neuro: Alert, oriented, cranial nerves II through XII grossly intact. Psychiatry: Normal mood. Normal affect. Not depressed. Not anxious. Lab / Micro Data 11/17/23 11:23 11/17/23 11:23 Labs: Laboratory Results - last 24 hr 12/04/23 08:21: POC Glucose 149 H Imaging Radiology Impression Shoulder X-Ray 12/04/23 12:44 IMPRESSION: Status post reverse shoulder replacement. There is good alignment. Postoperative soft tissue changes. Electronically Signed: Mahamed Pablo MD at 13:15 EDT , Charges/Coding Visit Charges Inpatient E&M: 47515 Subs Hosp L3 Procedures Hospitalists Procedures: 07678 Advncd Care Plan 30 Min
[2023-12-04] MEDS: Senna/Docusate Sodium 1 Tablet 2 TABLET PO (22:37)
[2023-12-05] VITALS (7 sets, daily range): BP systolic 82–110; BP diastolic 57–83; PULSE 55–78; RESP 16–18; TEMP 36.3–36.9; O2SAT 88–100
[2023-12-05] MEDS: Cefazolin 1 GM/50 ML BAG IV (01:53)
[2023-12-05] MEDS: Nortriptyline 25 MG Capsule 50 MG PO (01:55)
[2023-12-05] MEDS: Lactated Ringers 1,000 ML 125 ML IV (06:08)
[2023-12-05] MEDS: Famotidine 20 MG Tablet PO (08:20)
[2023-12-05] MEDS: Senna/Docusate Sodium 1 Tablet 2 TABLET PO (08:20)
[2023-12-05] MEDS: Modafinil 200 MG Tablet 100 MG PO (08:20)
[2023-12-05] MEDS: Acetaminophen 500 MG Tablet 1000 MG PO (08:21)
[2023-12-05] MEDS: Aspirin E.C. 81 MG Tablet PO (08:21)
[2023-12-05 08:22] LABS: Hematocrit 32.3 % (40-54); Hemoglobin 10.7 g/dL (13.0-16.5); Mean Corp Hgb Conc 33.1 g/dL (32-36); Mean Corpuscular Hgb 33.5 pg (27.0-32.0); Mean Corpuscular Volume 101.3 fL (80-94); Mean Platelet Vol. 9.9 fl (6.2-12.0); Platelet Count 113 K/mm3 (150-450); RBC Distribution Width CV 13.7 % (11.6-14.6); RBC Distribution Width SD 50.4 fl (35.1-43.9); Red Blood Count 3.19 M/mm3 (4.6-6.2); White Blood Count 7.7 K/mm3 (4.4-11.0)
[2023-12-05 08:51] LABS: Anion Gap 2 (5-15); BUN 15 mg/dL (7-18); BUN/Creat Ratio 19.9 RATIO (10-20); Calcium,Total 8.1 mg/dL (8.5-10.1); Chloride 106 mmol/L (98-107); Creatinine, Serum 0.76 mg/dL (0.70-1.30); EST Glomerular Filtration Rate 107 mL/min (>60); Est Glom Filt Rate - Afr Amer 129 mL/min (>60); Estimated Creatinine Clearance 79.93 ml/min; Glucose 95 mg/dL (74-106); Potassium 4.2 mmol/L (3.5-5.1); Sodium Level 137 mmol/L (136-145)
--- NOTE | 2023-12-05 09:25 | PCM.PN.HOSP ---
Reason for Visit Reason for Visit: Diagnoses Primary central sleep apnea (12/04/23) Idiopathic hypotension (12/04/23) Idiopathic pulmonary fibrosis (12/04/23) Encounter for other preprocedural examination (12/04/23) Presence of right artificial shoulder joint (12/04/23) Objective Data Objective Data Vital Signs: Vital Signs Temp Pulse Resp BP Pulse Ox O2 Del Method O2 Flow Rate 97.3 F L 55 L 16 95/60 100 Nasal Cannula 2 12/05/23 06:03 12/05/23 06:03 12/05/23 06:03 12/05/23 06:03 12/05/23 06:03 12/05/23 06:03 12/05/23 06:03 Oxygen Flow Rate (L/min) 2 Oxygen Delivery Method Nasal Cannula Weight: 187 lb Body Mass Index (BMI) 31.1 Intake & Output: Intake and Output for Last 24 Hours 12/03/23 12/04/23 12/05/23 23:59 23:59 23:59 Intake Total 4472 / 4472 1089.59 / 1089.59 Output Total 250 / 250 Balance 4472 / 4472 839.59 / 839.59 Lab / Micro Data 12/05/23 08:05 12/05/23 08:05 Labs: Laboratory Results - last 24 hr 12/05/23 08:05: WBC 7.7, RBC 3.19 L, Hgb 10.7 L, Hct 32.3 L, MCV 101.3 H, MCH 33.5 H, MCHC 33.1, RDW Std Deviation 50.4 H, RDW Coeff of Debbie 13.7, Plt Count 113 L, MPV 9.9, Sodium 137, Potassium 4.2, Chloride 106, Carbon Dioxide 29.0, Anion Gap 2 L, BUN 15, Creatinine 0.76, Estim Creat Clear Calc 79.93, Est GFR (MDRD) Af Amer 129, Est GFR (MDRD) Non-Af 107, BUN/Creatinine Ratio 19.9, Glucose 95, Calcium 8.1 L Micro: Microbiology 11/17/23 11:23 Swab (Method) Nasal Screen MRSA/MSSA - Final Radiography Diagnostic Testing: Radiology Impression Shoulder X-Ray 12/04/23 12:44 IMPRESSION: Status post reverse shoulder replacement. There is good alignment. Postoperative soft tissue changes. Electronically Signed: Mahamed Pablo MD at 13:15 EDT , Physical Exam Narrative Seen and examined. Patient had reverse right shoulder replacement by Dr. Alaniz [facility] yesterday. Patient pain is well-controlled. He said his very sensitive to pain but is fortunate that he is not having pain. History of pulmonary fibrosis. Had not had BM today. Physical exam General: Alert, Oriented x3, Cooperative HEENT: Atraumatic, PERRLA, EOMI, Normocephalic Oral: No Gingival or Mucosal Lesions/ Ulcerations Neck: Supple, No JVD, Negative Carotid Bruits Chest wall/Lungs: Air entry diminished in bilateral lung bases. Fine inspiratory rales. Cardiovascular: Irregular rhythm, Normal S1, Normal S2, systolic murmur present. Abdomen: Bowel Sounds Present, Soft, Non Tender, Non-Distended : No dysuria. No renal angle tenderness. No suprapubic tenderness. Extremities: No edema, Capillary Refill Less than 3 Seconds Skin: Surgical dressing is dry. No hematoma or bruit. Musculoskeletal: Right shoulder reverse arthroplasty. No Tenderness to Palpation of Joints or Extremities Neurological: Cranial nerves II-XII grossly intact, DTR 2+/4. No acute focal neurological deficit. Psych/Mental Status: Normal Affect, Appropriate. Assessment & Plan Assessment/Plan (1) Hypotension: QUALIFIERS: Hypotension type: idiopathic hypotension Qualified Code(s): I95.0 - Idiopathic hypotension (2) Status post reverse arthroplasty of right shoulder: (3) IPF (idiopathic pulmonary fibrosis): (4) Central sleep apnea: PLAN: Plan DION LOWRY, is a 73 M with a significant history of central sleep apnea; tachycardia; heart failure with preserved ejection fraction; IPF; and headaches who is status post right reverse total shoulder arthroplasty and for whom internal medicine service has been consulted for medical management of chronic medical conditions including the above and also for postoperative management. Right glenohumeral joint arthritis and rotator cuff deficiency status post revised right shoulder arthroplasty: Patient is doing well. Pain is well-controlled. Managed by orthopedic surgery. Heart failure with preserved ejection fraction No acute issues. On palpation and auscultation, heart rate is irregular patient denies history of A-fib. Lasix continued. Stop IV fluids. Hypotension: On 12/03 blood pressure was low 87/55, 90/55, 82/60. 12/04: Blood pressure at 98/60. MAP 72. Hypotensive resolved. Hold metoprolol. Pulmonary fibrosis and Central sleep apnea Continue home modafinil and BiPAP/CPAP. DVT prophylaxis: Mechanical. Patient is discharged home by orthopedic surgeon. Medically stable. Advance care planning: Discussed with patient and family advanced directives as well as CODE STATUS. Explained various CODE STATUS: FULL CODE, DNR CCA, DNR CCA with no intubation, and DNR CC- and what each meant. Patient elected to be a DNR CCA with no chest compressions or intubation. Charges/Coding Visit Charges Inpatient E&M: 99619 Subs Hosp L2
--- NOTE | 2023-12-05 09:45 | CASEMGMT ---
Addendum entered by Steffanie Saldaña 12/05/23 12:20: OCTAVIO MEEKS into pt room, pt sitting up in chair in no distress, sitting at bedside. Pt agreeable to answering questions with in room. Pt states does not wear O2 at home and pt reports has not had O2 on today since he got dressed around 9am. Pt reports has a bi-pap machine he uses at night time. Original Note: OCTAVIO MEEKS Assessment: Face to Face with pt for initial transition planning/care coordination assessment. OCTAVIO MEEKS introduced self and role at [facility], pt voices understanding and consents to assessment. OT finishing therapy with pt, pt sitting in chair in on distress. Pt is A&O x4 and answers all questions appropriately at this time. Care providers, pharmacy, and demographics verified/updated. Admitting Dx: Total Shoulder Replacement PCP: Norberto Specialists: Giancarlo - mate first, Joellen - c d reactor operator, Andres - neurologist Preferred [facility]: yes LNOK: Anabella - Living Arrangements: Pt lives with at Independent living at [facility], a 1 story with no stairs to enter. Pt states I with ADLs and IADLs. Transportation: Pt drives self and denies concerns with transportation. will transport home upon DC. DME: walking stick, shower seat. HHC/SNF: Denies Hx of. Pt states no concerns with going home at time of dc. Pt states no further concerns/needs. CM to follow. Advised pt to ask CM if any further question/concerns/needs arise, voices understanding. Pt Goal: Home Plan: Home, will follow plan of care. Afua CUNNINGHAM CM
--- NOTE | 2023-12-05 11:04 | PCM.DC ---
Discharge Instructions Diet Discharge Diet: No restrictions Activity Discharge Activity: Return to Normal Activity (sling to right upper extremity at all times. non weight bearing to right upper extremity. ) and May Shower Weight Bearing Status: No weight bearing (right upper extremity) Additional Activity Instructions:: sling to right upper extremity at all times. non weight bearing to right upper extremity. Dressing / Incision Call your doctor if your incision/area has: Continuous Slow Oozing, Sudden Increased Bleeding, Increased Pain/ Swelling, Increased Redness, Foul Smelling Discharge and Swelling at the incision site Call your doctor if you observe: Fever of 101 or Higher, Inability to have a bowel movement, Shortness of breath, Swelling in the ankles, Chest pain, Increased palpitations (irregular heartbeat) and Calf discomfort Remove Dressing in: 1 week Cleanse incision/area with: Soap & Water and Keep Dressing Clean & Dry Follow Up Care When: in 2 weeks with louise ortho as previously scheduled. Test Results: Test results from this visit will be discussed in further detail at your follow-up appointment, if applicable. Discharge Plan Admission Admit Date/Time: 12/04/23 12:08 Attending Provider: Corbin Guaman Primary Care Provider: Felisha Thornton Consulting Providers: Ephraim Palacios; Vipul Hale Discharge Orders/Prescriptions Prescriptions: No Action furosemide 40 mg tablet 40 mg PO DAILY aspirin [Adult Aspirin Regimen] 81 mg tablet,delayed release (DR/EC) 81 mg PO DAILY metoprolol succinate 25 mg tablet extended release 24 hr 25 mg PO DAILY pirfenidone [Esbriet] 267 mg capsule 801 mg PO TID modafinil 100 mg tablet 100 mg PO DAILY nortriptyline 50 mg capsule 50 mg PO QHS famotidine [Pepcid] 20 mg tablet 20 mg PO DAILY Referrals / Follow Up: Felisha Thornton DO [Primary Care Provider] -
--- NOTE | 2023-12-05 11:38 | CASEMGMT ---
Social Work Pt confirmed w/SW that his Anabella is his healthcare POA. Pt anticipates being discharged today. SW asked him to bring in the documents as able to be put in his chart. Pt states understanding. GOOD [place]
--- NOTE | 2023-12-05 11:48 | PCM.PN.ORT ---
Subjective Subjective Patient is s/p right sided reverse total shoulder arthroplasty with Dr. Guaman 12/04/2023. Patient resting comfortably in bed. Patient is using 3 L nasal cannula satting 99%. He has a history of pulmonary fibrosis. No acute respiratory concerns or distress.. Rates pain 0/ 10 at rest. With movement 0/10. States taking Tylenol and oxycodone as needed and ice help to relieve pain. Patient has been up with therapy. Patient has been up walking. He is compliant with the sling at all times.. Afebrile, no chest pain, shortness of breath, negative calf pain/ erythema, and no other signs of DVT. Objective Data Objective Data Vital Signs: Vital Signs Temp Pulse Resp BP Pulse Ox O2 Del Method O2 Flow Rate 98.4 F 65 18 96/57 L 99 Nasal Cannula 3 12/05/23 10:16 12/05/23 10:16 12/05/23 10:16 12/05/23 10:16 12/05/23 10:57 12/05/23 10:57 12/05/23 10:57 Oxygen Flow Rate (L/min) 3 Oxygen Delivery Method Nasal Cannula Weight: 84.822 kg Body Mass Index (BMI) 31.1 Intake & Output: Intake and Output for Last 24 Hours 12/03/23 12/04/23 12/05/23 23:59 23:59 23:59 Intake Total 4472 / 4472 1089.59 / 1089.59 Output Total 250 / 250 Balance 4472 / 4472 839.59 / 839.59 Lab / Micro Data 12/05/23 08:05 12/05/23 08:05 Labs: Laboratory Results - last 24 hr 12/05/23 08:05: WBC 7.7, RBC 3.19 L, Hgb 10.7 L, Hct 32.3 L, MCV 101.3 H, MCH 33.5 H, MCHC 33.1, RDW Std Deviation 50.4 H, RDW Coeff of Debbie 13.7, Plt Count 113 L, MPV 9.9, Sodium 137, Potassium 4.2, Chloride 106, Carbon Dioxide 29.0, Anion Gap 2 L, BUN 15, Creatinine 0.76, Estim Creat Clear Calc 79.93, Est GFR (MDRD) Af Amer 129, Est GFR (MDRD) Non-Af 107, BUN/Creatinine Ratio 19.9, Glucose 95, Calcium 8.1 L Micro: Microbiology 11/17/23 11:23 Swab (Method) Nasal Screen MRSA/MSSA - Final Radiography Diagnostic Testing: Radiology Impression Shoulder X-Ray 12/04/23 12:44 IMPRESSION: Status post reverse shoulder replacement. There is good alignment. Postoperative soft tissue changes. Electronically Signed: Mahamed Pablo MD at 13:15 EDT , Physical Exam Narrative Patient resting comfortably in bed Sling in place. No signs of acute distress Patient is on 3 L nasal cannula satting 99%. He has history of pulmonary fibrosis. Limb is warm to touch, Sensation intact throughout entire upper extremity including musculocutaneous, radial, median, ulnar nerve distribution Intact motor to radial, median, ulnar nerve distribution Radial pulses bounding. Able to make full composite fist Dressing clear dry intact Calf nontender to palpation, no erythema, no edema. Negative Homans Assessment & Plan Assessment/Plan (1) Status post reverse arthroplasty of right shoulder: PLAN: 1. Will continue PT today. Nonweightbearing right upper extremity. Sling at all times. 2. plan for discharge this afternoon following PT 3. Patient will follow up for post op appointment as previously scheduled in 2 weeks with his orthopedics 4. Patient has outpatient PT appointment after postop appointment in 2 weeks as previously scheduled. 5. WBC 7.7 no acute reactive leukocytosis 6. H/H 10.7/32.3: post operavtive anemia secondary to acute blood loss intraoperatively. Patient is asymptomatic at this time. No intraoperative complications. will continue to monitor. no acute interventions. 7. DVT prophylaxis : Aspirin 81 mg twice daily x 2 weeks 8. Pain control: patient instructed to take tylenol 500mg 2 tablets TID. and oxycodone 1-2 tablets every 4-6 hours only as needed for pain control. 9. Patient also given a prescription of senna, Pepcid 10. ok to remove post op dressing. post op day 7. 11.patient is off of nasal cannula at this time for a few hours, and has been up to the bathroom and dressing himself without a decrease in O2 saturation. He is at his baseline right now at about 96% saturation. He states he runs anywhere from 92% to 96% at home. He is not have home oxygen. I believe at this time he is okay for discharge from a respiratory standpoint and medicine does not have any concerns about further oxygen needs.
[2023-12-05] MEDS: oxyCODONE 5 MG Tablet PO (13:45)
== END 2023-12-05 14:15 | disposition home or self-care (01) ==
LOC: SDC 16:04 → MS3 16:04
PROVIDERS: Anesthesiology; Admitting Provider Student in an Organized Health Care Education/Training Program; Referring Provider Student in an Organized Health Care Education/Training Program; Visit Provider Student in an Organized Health Care Education/Training Program
PROC: (CPT 23472; principal; 2023-12-04 09:45)
DX: M19.011 Primary osteoarthritis, right shoulder (principal); J84.112 Idiopathic pulmonary fibrosis; I11.0 Hypertensive heart disease with heart failure; I50.32 Chronic diastolic (congestive) heart failure; I95.0 Idiopathic hypotension; Z79.82 Long term (current) use of aspirin; G47.31 Primary central sleep apnea; Z79.899 Other long term (current) drug therapy; Z85.038 Personal history of other malignant neoplasm of large intestine
CPT/HCPCS: 23472; 01638; 36415; 73030; 80048; 82040; 82962; 83036; 83735; 85025; 85027; 87081; 88305; 88311; 94668; 96361; 96365; 96366; 96415; 97166; 99221; 99252; C1713; C1776; J7120; G0378; G0463; J2405; J3475

== ENCOUNTER 2024-02-18 11:07 | Outpatient (RCR) | payer MEDICARE, OTHER, SELFPAY ==
[2024-02-18 12:03] LABS: AST(SGOT) 10 U/L (15-37); Alanine Aminotransfer ALT/SGPT 20 U/L (16-61); Albumin, Serum 3.1 g/dL (3.2-5.0); Alkaline Phosphatase 95 U/L (45-117); Bilirubin, Direct 0.22 mg/dL (0.00-0.30); Globulin 3.4 g/dL (2.2-4.2); Protein, Total 6.5 g/dL (6.4-8.2)
== END 2024-02-18 18:00 | disposition home or self-care (01) ==
LOC: LAB 11:07
PROVIDERS: Referring Provider Internal Medicine Pulmonary Disease; Visit Provider Internal Medicine Pulmonary Disease
DX: I27.20 Pulmonary hypertension, unspecified (principal); R06.02 Shortness of breath
CPT/HCPCS: 36415; 80076

== ENCOUNTER 2024-05-12 13:44 | Outpatient (RCR) | payer MEDICARE, OTHER, SELFPAY ==
[2024-05-12 15:12] LABS: AST(SGOT) 16 U/L (15-37); Alanine Aminotransfer ALT/SGPT 25 U/L (16-61); Albumin, Serum 3.6 g/dL (3.2-5.0); Alkaline Phosphatase 100 U/L (45-117); Bilirubin, Direct 0.15 mg/dL (0.00-0.30); Globulin 3.5 g/dL (2.2-4.2); Protein, Total 7.1 g/dL (6.4-8.2)
== END 2024-05-12 18:00 | disposition home or self-care (01) ==
LOC: LAB 13:44
PROVIDERS: Referring Provider Internal Medicine Pulmonary Disease; Visit Provider Internal Medicine Pulmonary Disease
DX: J84.10 Pulmonary fibrosis, unspecified (principal); Z79.899 Other long term (current) drug therapy

== ENCOUNTER 2024-09-02 12:32 | Outpatient (RCR) | payer MEDICARE, OTHER, SELFPAY ==
[2024-09-02 13:42] LABS: AST(SGOT) 16 U/L (<=37); Alanine Aminotransfer ALT/SGPT 24 U/L (<=46)
== END 2024-09-02 18:00 | disposition home or self-care (01) ==
LOC: LAB 12:32
PROVIDERS: Referring Provider Internal Medicine Pulmonary Disease; Visit Provider Internal Medicine Pulmonary Disease
DX: J84.112 Idiopathic pulmonary fibrosis (principal); Z79.899 Other long term (current) drug therapy
CPT/HCPCS: 36415; 84450; 84460

== ENCOUNTER 2024-11-18 11:48 | Outpatient (RCR) | payer MEDICARE, OTHER, SELFPAY ==
[2024-11-18 13:06] LABS: AST(SGOT) 26 U/L (<=37); Alanine Aminotransfer ALT/SGPT 14 U/L (<=46); Albumin, Serum 3.8 g/dL (3.4-4.8); Alkaline Phosphatase 84 U/L (40-129); Bilirubin, Direct 0.22 mg/dL (0.00-0.30); Globulin 2.7 g/dL (2.2-4.2); Protein, Total 6.5 g/dL (5.9-8.4); Total Bilirubin 0.52 mg/dL (0.00-1.30)
== END 2024-11-18 18:00 | disposition home or self-care (01) ==
LOC: LAB 11:48
PROVIDERS: Referring Provider Internal Medicine Pulmonary Disease; Visit Provider Internal Medicine Pulmonary Disease
DX: J84.112 Idiopathic pulmonary fibrosis
CPT/HCPCS: 36415; 80076

== ENCOUNTER 2025-02-22 09:26 | Outpatient (RCR) | payer MEDICARE, OTHER, SELFPAY ==
[2025-02-22 11:23] LABS: AST(SGOT) 17 U/L (<=37); Alanine Aminotransfer ALT/SGPT 11 U/L (<=46); Albumin, Serum 3.9 g/dL (3.4-4.8); Alkaline Phosphatase 70 U/L (40-129); Bilirubin, Direct 0.25 mg/dL (0.00-0.30); Globulin 2.6 g/dL (2.2-4.2)
== END 2025-03-08 18:00 | disposition home or self-care (01) ==
LOC: LAB 09:26
PROVIDERS: Referring Provider Internal Medicine Pulmonary Disease; Visit Provider Internal Medicine Pulmonary Disease
DX: J84.10 Pulmonary fibrosis, unspecified (principal); Z79.899 Other long term (current) drug therapy
CPT/HCPCS: 36415; 80076

== ENCOUNTER 2025-05-11 10:01 | Outpatient (RCR) | payer MEDICARE, OTHER, SELFPAY ==
[2025-05-11 11:35] LABS: AST(SGOT) 20 U/L (<=37); Alanine Aminotransfer ALT/SGPT 14 U/L (<=46); Albumin, Serum 4.1 g/dL (3.4-4.8); Alkaline Phosphatase 72 U/L (40-129); Bilirubin, Direct 0.22 mg/dL (0.00-0.30); Globulin 2.8 g/dL (2.2-4.2)
== END 2025-05-11 18:00 | disposition home or self-care (01) ==
LOC: LAB 10:01
PROVIDERS: Referring Provider Internal Medicine Pulmonary Disease; Visit Provider Internal Medicine Pulmonary Disease
DX: J84.112 Idiopathic pulmonary fibrosis
CPT/HCPCS: 36415; 80076